=== PATIENT | female | born 1960 | race Caucasian/White ===

== ENCOUNTER → 2018-07-03 | Outpatient (CLI) | payer BC ==
--- NOTE | 2018-07-04 12:36 | RADIOLOGY IMAGING REPORT ---
FACILITY: [facility] PATIENT NAME: SHAUNA GOTTLIEB : [id number] MR: [id number] V: [id number] EXAM DATE: [id number] ORDERING PHYSICIAN: FRANCIS FLYNN TECHNOLOGIST: Cathryn Gifford PROCEDURE:BILATERAL DIGITAL SCREENING MAMMOGRAM WITH CAD ASSISTED INTERPRETATION & 3D TOMOSYNTHESIS COMPARISON:04/16/2016, 12/04/2012 VIEWS OBTAINED: Bilateral 2D full field CC & MLO & corresponding 3D tomography, Right breast 2D full field XCCM. History: Right breast benign surgical biopsy in 1998. TISSUE DENSITY: Scattered fibroglandular densities. FINDINGS: There are no mammographic findings suspicious for malignancy, & no significant change compared to prior mammograms. DIAGNOSTIC CATEGORY 1--NEGATIVE. RECOMMENDATIONS: ROUTINE MAMMOGRAM AND CLINICAL EVALUATION. IMPRESSION: BIRADS 1: Negative. Dictated by: Lisa See M.D. on 07/04/2018 at 8:58 Transcribed by: AUREA on 07/04/2018 at 11:12 Approved by: Lisa See M.D. on 07/04/2018 at 12:36 [facility]
== END ==
LOC: MAMO 00:41
PROVIDERS: ATTEND Nurse Practitioner Family
DX: Z12.31 Encounter for screening mammogram for malignant neoplasm of breast (principal)
CPT/HCPCS: 77063; 77067